=== PATIENT | female | born 2000 | race Caucasian/White ===

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

== ENCOUNTER 2019-03-21 20:56 | Emergency (ER) | payer OTHER ==
[~2019-03-21] VITALS: Ht 157.5 cm; Wt 77.6 kg
[2019-03-21 21:05] VITALS: BP 115/60
--- NOTE | 2019-03-21 21:12 | NUR ---
PT AMBULATED TO THE LOBBY TO A/W BED
--- NOTE | 2019-03-21 22:31 | NUR ---
PT ambulated to bed 03.
--- NOTE | 2019-03-21 22:45 | NUR ---
19 YEAR OLD FEMALE COMPLAINS OF LOWER ABDOMINAL PAIN, BACK PAIN, CHILLS, AND INCREASED URGENCY TO URINATE X 2 DAYS. PATIENT SAYS PAIN 8/10 SHARP CONTINOUS PAIN. PATIENT STATES NO HEMATURIA OR PAIN WITH URINATION. PATIENT ALERT AND ORIENTED, BREATHING EVEN AND UNLABORED, SKIN WARM AND DRY. BED IN LOWEST POSITION, LOCKED, BED RAIL UPX1. PMH - PYLENEPHRITIS (1 YEAR AGO), CYST OVARIAN (2 YEARS AGO) MEDICATIONS - NONE ALLERGIES - NKA
[2019-03-21 22:53] LABS: APPEARANCE,URINE CLEAR (CLEAR); BILIRUBIN,URINE NEGATIVE (NEGATIVE); BLOOD, URINE NEGATIVE (NEGATIVE); COLOR,URINE YELLOW (YELLOW); LEUKOCYTE ESTERASE ,URINE TRACE (NEGATIVE); NITRITE, URINE POSITIVE (NEGATIVE); PH,URINE 7.5 (5.0-9.0); UGLUCOSE NEGATIVE (NEGATIVE)
[2019-03-21 23:10] LABS: RBC,URINE 0-5 /HPF (0-5)
--- NOTE | 2019-03-21 23:34 | NUR ---
PATIENT ALERT AND AWAKE, BREATHING EVEN AND UNLABORED
[2019-03-21] MEDS: SULFAMETH/TRIMETH DS 800/160MG 1 TAB PO ONE (23:37)
--- NOTE | 2019-03-22 00:01 | NUR ---
Patient discharged with v/s stable. Written and verbal after care instructions given and explained. Patient alert, oriented and verbalized understanding of instructions. Ambulatory with steady gait. All questions addressed prior to discharge. ID band removed. Patient advised to follow up with PMD. Rx of IBUPROFEN, BACTRIM, PHENAZOPYRIDINE given. Patient educated on indication of medication including possible reaction and side effects. Opportunity to ask questions provided and answered.
[2019-03-22 00:02] VITALS: BP 115/60
== END 2019-03-22 00:01 | disposition home or self-care (01) ==
LOC: MED 20:56
DX: N39.0 Urinary tract infection, site not specified (principal); Z79.899 Other long term (current) drug therapy
CPT/HCPCS: 81001; 81025; 87086; 87186; 99283

== ENCOUNTER 2020-07-14 11:16 | Emergency (ER) | payer OTHER ==
[~2020-07-14] VITALS: Ht 160 cm; Wt 93.9 kg
--- NOTE | 2020-07-14 11:21 | NUR ---
PT TAKEN TO BED 6
[2020-07-14 11:27] VITALS: BP 123/75
[2020-07-14] MEDS ORDERED: ONDANSETRON 4 MG ODT PO ONE (11:40)
[2020-07-14] MEDS ORDERED: ONDANSETRON 4 MG ODT ONE (11:43)
--- NOTE | 2020-07-14 11:48 | NUR ---
20 YEAR OLD FEMALE COMPLAINS OF NAUSEA AND VOMITTING X TODAY. PT STATES SHE TOOK ZOFRAN AT HOME AND HAS NOT HELPED. PT DENIES ABDOMINAL PAIN, ONLY WHEN SHE IS VOMITTING. PT DENIES BLOOD IN VOMIT. PT AOX4, BREATHING EVEN AND UNLABORED, SKIN WARM AND DRY. BED IN LOWEST POSITION, LOCKED, BED RAIL UPX1. PMH - DENIES ALLERGIES - NKA
[2020-07-14 12:00] LABS: BASOPHILS % (AUTO) 0.1 % (0.0-2.0); EOSINOPHILS # (AUTO) 0.1 K/uL (0-0.4); EOSINOPHILS % (AUTO) 0.4 % (0.0-4.0); LYMPHOCYTES # (AUTO) 0.4 K/uL (2.5-16.5); LYMPHOCYTES % (AUTO) 2.6 % (20.5-51.1); MEAN CORPUSCULAR HEMOGLOBIN 27 pg (27-31); MEAN CORPUSCULAR HGB CONC 33 g/dL (33-37); MEAN CORPUSCULAR VOLUME 83.1 fL (80-94); MONOCYTES # (AUTO) 0.6 K/uL (0.8-1.0); MONOCYTES % (AUTO) 3.7 % (1.7-9.3); NEUTROPHILS # (AUTO) 15.1 K/uL (1.8-7.7); NEUTROPHILS % (AUTO) 93.2 % (42.2-75.2); PLATELET COUNT (AUTO) 290 K/uL (140-450); RED BLOOD CELL COUNT(AUTO) 5.17 MIL/uL (4.20-5.40); RED CELL DISTRIBUTION WIDTH 13.9 % (11.6-13.7); WHITE BLOOD COUNT (AUTO) 16.2 K/uL (4.8-10.8)
[2020-07-14 12:16] LABS: ALBUMIN 3.8 g/dL (3.4-5.0); ANION GAP 14.6 (8-16); CARBON DIOXIDE 24.9 mmol/L (21-32); CREATININE 0.9 mg/dL (0.6-1.3); POTASSIUM 4.5 mmol/L (3.5-5.1); TOTAL BILIRUBIN 0.5 mg/dL (0.0-1.0)
[2020-07-14] MEDS ORDERED: ONDANSETRON 4 MG/2 ML VIAL IVP ONE (12:55)
[2020-07-14] MEDS ORDERED: NACL 0.9% 2,000 ML IV ONE (12:55)
[2020-07-14] MEDS ORDERED: KETOROLAC 30 MG/ML VIAL IVP ONE (12:55)
--- NOTE | 2020-07-14 13:30 | NUR ---
PT ALERT AND AWAKE, BREATHING EVEN AND UNLABORED. NO DISTRESS NOTED.
[2020-07-14] MEDS ORDERED: ONDA-24 SL (14:20)
--- NOTE | 2020-07-14 14:55 | NUR ---
Patient discharged with v/s stable. Written and verbal after care instructions about diarrhea, vomitting given and explained. Patient alert, oriented and verbalized understanding of instructions. Ambulatory with steady gait. All questions addressed prior to discharge. ID band removed. Patient advised to follow up with PMD. Rx of zofran given. Patient educated on indication of medication including possible reaction and side effects. Opportunity to ask questions provided and answered.
[2020-07-14 14:56] VITALS: BP 104/54
== END 2020-07-14 14:55 | disposition home or self-care (01) ==
LOC: MED 11:16
DX: R11.2 Nausea with vomiting, unspecified (principal); Z79.899 Other long term (current) drug therapy
CPT/HCPCS: 36415; 80053; 81002; 81025; 85025; 96361; 96374; 96375; 99284; J1885; J2405; J7030; Q0162